=== PATIENT | female | born 1975 | race Hispanic/Latino ===

== ENCOUNTER 2019-04-02 16:25 | Observation (INO) | payer OTHER ==
[~2019-04-02] VITALS: Ht 152.4 cm; Wt 80.5 kg
[2019-04-02 16:55] LABS: BASOPHILS % (AUTO) 0.5 % (0.0-5.0); EOSINOPHILS % (AUTO) 0.9 % (0.0-8.0); HEMATOCRIT 32.2 % (36-48); LYMPHOCYTES % (AUTO) 19.4 % (21.0-51.0); MEAN CORPUSCULAR HEMOGLOBIN 30.8 pg (27.0-33.0); MEAN CORPUSCULAR HGB CONC 34.9 g/dL (32.0-36.0); MEAN CORPUSCULAR VOLUME 88.1 fL (79-99); MONOCYTES % (AUTO) 5.7 % (3.0-13.0); NEUTROPHILS % (AUTO) 73.5 % (40.0-77.0); PLATELET COUNT (AUTO) 194 K/uL (130-400); RED BLOOD CELL COUNT(AUTO) 3.65 MIL/uL (4.00-5.50); RED CELL DISTRIBUTION WIDTH 12.7 % (11.0-15.5)
[2019-04-02 16:57] LABS: APPEARANCE,URINE Clear (CLEAR); BILIRUBIN,URINE Negative (NEGATIVE); COLOR,URINE Yellow (YELLOW); GLUCOSE, URINE (UA) Negative (NEGATIVE); KETONES,URINE Negative (NEGATIVE); LEUKOCYTE ESTERASE ,URINE Negative (NEGATIVE); NITRATE,URINE Negative (NEGATIVE); OCCULT BLOOD,URINE Negative (NEGATIVE); PROTEIN,URINE POS 2+ mg/dL (NEGATIVE); UROBILINOGEN,URINE 0.2 mg/dL (0.2-1.0)
[2019-04-02] MEDS ORDERED: NITROGLYCERIN 0.4 MG SL TAB SL ONE (16:57)
[2019-04-02] MEDS ORDERED: ASPIRIN 325 MG TABLET ONE (16:57)
[2019-04-02 17:04] LABS: BACTERIA,URINE Rare /HPF (None Seen); RBC,URINE 0-1 /HPF (0-1); SQUAMOUS EPITHELIAL CELL,UR Few /HPF (0-2); WBC,URINE 0-1 /HPF (0-1)
[2019-04-02 17:06] LABS: CREATININE 2.3 mg/dL (0.5-1.5); POTASSIUM 3.8 mmol/L (3.5-5.1)
[2019-04-02 17:11] LABS: ALBUMIN 3.3 g/dL (3.5-5.0); BILIRUBIN,TOTAL 0.3 mg/dL (0.2-1.0)
[2019-04-02] MEDS ORDERED: CLONIDINE HCL 0.1 MG TABLET PO PRN (18:30)
[2019-04-02] MEDS ORDERED: HYDROMORPHONE HCL 0.5 MG/0.5 ML ML IVP PRN (18:30)
[2019-04-02 23:23] LABS: CREATINE KINASE, TOTAL 69 U/L (21-232); MYOGLOBIN 83 ng/mL (10-92); TROPONIN I < 0.04 ng/mL (0.00-0.06)
[2019-04-03] MEDS ORDERED: ACETAMINOPHEN 325 MG TAB PO PRN (00:15)
[2019-04-03] MEDS ORDERED: ONDANSETRON HCL 4 MG/2 ML VIAL IVP PRN (00:15)
[2019-04-03 01:10] VITALS: BP 145/81
[2019-04-03 04:00] VITALS: BP 128/75
[2019-04-03 06:11] LABS: MEAN CORPUSCULAR HGB CONC 34.1 g/dL (32.0-36.0); MEAN CORPUSCULAR VOLUME 87.8 fL (79-99); PLATELET COUNT (AUTO) 196 K/uL (130-400); RED BLOOD CELL COUNT(AUTO) 3.42 MIL/uL (4.00-5.50); RED CELL DISTRIBUTION WIDTH 13.2 % (11.0-15.5); WHITE BLOOD COUNT (AUTO) 7.1 K/uL (4.8-10.8)
[2019-04-03 06:40] LABS: ALANINE AMINOTRANSFERASE 17 U/L (12-78); ALBUMIN 2.9 g/dL (3.5-5.0); ASPARTATE AMINOTRANSFERASE 14 U/L (10-37); BILIRUBIN,TOTAL 0.2 mg/dL (0.2-1.0); CARBON DIOXIDE 25 mmol/L (21-32); CHLORIDE 107 mmol/L (101-111); CHOLESTEROL 164 mg/dL (<200); CREATINE KINASE, TOTAL 64 U/L (21-232); CREATININE 2.3 mg/dL (0.5-1.5); GLOMERULAR FILTR. RATE CALC 25 mL/min (>60); GLUCOSE,RANDOM 103 mg/dL (70-105); HDL CHOLESTEROL 46 mg/dL (35-85); LDL DIRECT 93 mg/dL (0-99); MYOGLOBIN 91 ng/mL (10-92); POTASSIUM 3.6 mmol/L (3.5-5.1); SODIUM SERUM 140 mmol/L (136-145); TOTAL PROTEIN, SERUM 6.4 g/dL (6.0-8.3); TRIGLYCERIDES 127 mg/dL (30-200); TROPONIN I < 0.04 ng/mL (0.00-0.06); UREA NITROGEN, BLOOD 20 mg/dL (7-18)
[2019-04-03 06:46] LABS: HEMOGLOBIN A1C 5.4 % (4.0-6.0)
[2019-04-03 07:30] VITALS: BP 166/105
[2019-04-03] MEDS: ASPIRIN 81MG TAB.CHEW PO SCH (10:21)
[2019-04-03] MEDS: PANTOPRAZOLE SODIUM 40 MG TABLET.DR PO SCH (10:21)
[2019-04-03] MEDS: ENOXAPARIN SODIUM 40 MG/0.4 ML SYRINGE SQ SCH (10:22)
[2019-04-03 10:36] LABS: CREATINE KINASE, TOTAL 70 U/L (21-232); MYOGLOBIN 90 ng/mL (10-92); TROPONIN I < 0.04 ng/mL (0.00-0.06)
[2019-04-03 11:00] VITALS: BP 177/108
[2019-04-03] MEDS ORDERED: SODIUM CHLORIDE 0.9% 1000ML 1,000 ML IV SCH (11:15)
[2019-04-03] MEDS ORDERED: DILT240C3 PO (13:25)
[2019-04-03] MEDS ORDERED: LABE300T2 PO (13:25)
[2019-04-03] MEDS ORDERED: HYDR100T27 PO (13:25)
[2019-04-03] MEDS ORDERED: MINO10TA3 PO (13:25)
[2019-04-03] MEDS ORDERED: LINA145C PO (13:25)
[2019-04-03] MEDS ORDERED: IPRATROPIUM/ALBUTEROL SULFATE 3 ML SOLUTION IH PRN (14:30)
[2019-04-03] MEDS: HYDRALAZINE HCL 25 MG TABLET PO SCH ×2 (14:58→21:05)
[2019-04-03 15:30] VITALS: BP 126/70
[2019-04-03] MEDS ORDERED: MINOXIDIL 2.5 MG TAB PO SCH (16:45)
[2019-04-03 19:25] VITALS: BP 152/88
[2019-04-03] MEDS ORDERED: ATORVASTATIN CALCIUM 20 MG TABLET PO SCH (21:00)
[2019-04-03] MEDS ORDERED: LABETALOL HCL 200 MG TABLET PO SCH (21:00)
[2019-04-03] MEDS: LABETALOL HCL 100 MG TABLET PO SCH (21:06)
[2019-04-04 00:20] VITALS: BP 121/77
[2019-04-04 04:30] VITALS: BP 135/86
[2019-04-04] MEDS: FUROSEMIDE 20 MG TABLET PO SCH ×2 (04:39→09:00)
--- NOTE | 2019-04-04 05:10 | NUR ---
PATIENT UPDATE 43 YR OLD FEMALE ADMITTED FOR CHEST PAIN, SERIAL CHEST PAIN PANEL NEGATIVE SINCE DAY 1. NO CHEST PAIN EPISODE FOR MORE THAN 24 HRS NOW. BLOOD PRESSURE ELEVATION NOTED YESTERDAY, HOME MEDS RESTARTED. PENDING A BILATERAL RENAL ARTERY DOPPLER EXAM FOR TODAY. NO COMPLAINTS OF ANY DISCOMFORT OVERNIGHT. RUNNING NORMAL SINUS RHYTHM IN THE 70'S TO 80'S IN THE MANAGER INVENTORY, NO ECTOPIES NOTED.
[2019-04-04 06:34] LABS: BASOPHILS % (AUTO) 0.5 % (0.0-5.0); EOSINOPHILS % (AUTO) 1.5 % (0.0-8.0); HEMATOCRIT 30.8 % (36-48); HEMOGLOBIN A1C 5.3 % (4.0-6.0); MEAN CORPUSCULAR HEMOGLOBIN 30.6 pg (27.0-33.0); MEAN CORPUSCULAR HGB CONC 34.4 g/dL (32.0-36.0); MONOCYTES % (AUTO) 6.7 % (3.0-13.0); NEUTROPHILS % (AUTO) 69.3 % (40.0-77.0); NUCLEATED RED BLOOD CELLS 0.1 % (0.0-0.19); PLATELET COUNT (AUTO) 173 K/uL (130-400); RED BLOOD CELL COUNT(AUTO) 3.46 MIL/uL (4.00-5.50); WHITE BLOOD COUNT (AUTO) 6.4 K/uL (4.8-10.8)
[2019-04-04 06:44] LABS: INR 0.91 (0.85-1.15); PARTIAL THROMBOPLASTIN TIME 26.4 SEC (26.3-35.5); PROTHROMBIN TIME 9.6 SEC (9.6-11.6)
[2019-04-04 06:45] LABS: B-TYPE NATRIURETIC PEPTIDE 155 pg/mL (0-100)
[2019-04-04 06:59] LABS: BILIRUBIN,TOTAL 0.3 mg/dL (0.2-1.0); CREATININE 2.3 mg/dL (0.5-1.5); MAGNESIUM 2.2 mg/dL (1.80-2.40); PHOSPHORUS 3.7 mg/dL (2.5-4.9); POTASSIUM 3.7 mmol/L (3.5-5.1); THYROID STIMULATING HORMONE 3.35 uIU/mL (0.36-3.74); TOTAL PROTEIN, SERUM 6.6 g/dL (6.0-8.3)
[2019-04-04 08:00] VITALS: BP 150/101
[2019-04-04] MEDS ORDERED: FURO20TA6 PO (08:36)
[2019-04-04] MEDS ORDERED: LABE300T2 PO (08:36)
[2019-04-04] MEDS ORDERED: ATOR20TA65 PO (08:36)
[2019-04-04] MEDS ORDERED: MINO2.5 PO (08:36)
[2019-04-04] MEDS ORDERED: ASPI-555 PO (08:36)
[2019-04-04] MEDS ORDERED: LINZESS 145 MCG PO SCH (09:00)
[2019-04-04] MEDS ORDERED: DILTIAZEM HCL 120 MG CAP.SR.24H PO SCH (09:00)
[2019-04-04] MEDS ORDERED: MINOXIDIL 2.5 MG TAB PO SCH ×2 (09:00)
[2019-04-04] MEDS: HYDRALAZINE HCL 25 MG TABLET PO SCH ×2 (09:30→14:00)
[2019-04-04] MEDS: ASPIRIN 81MG TAB.CHEW PO SCH (09:30)
[2019-04-04] MEDS: PANTOPRAZOLE SODIUM 40 MG TABLET.DR PO SCH (09:31)
[2019-04-04] MEDS: LABETALOL HCL 100 MG TABLET PO SCH (09:31)
[2019-04-04] MEDS: ENOXAPARIN SODIUM 40 MG/0.4 ML SYRINGE SQ SCH (09:32)
[2019-04-04 12:00] VITALS: BP 92/52
[2019-04-04 12:40] VITALS: BP 136/84
[2019-04-04 16:00] VITALS: BP 136/77
--- NOTE | 2019-04-04 17:55 | NUR ---
DISCHARGE PATIENT GIVEN DISCHARGE INSTRUCTIONS AND EDUCATION, INCLUDING SIDE EFFECTS ON NEW PRESCRIBED MEDICATIONS AND FOLLOW UP APPOINTMENTS. PATIENT VERBALIZED UNDERSTANDING OF ALL EDUCATION GIVEN VIA TEACH BACK. NO QUESTIONS OR CONCERNS VOICED AT THIS TIME. IV DISCONTINUED, CATHETER INTACT. CARD PUNCHING MACHINE OPERATOR DISCONTINUED, MONITOR AWARE. NO SIGNS OF DISTRESS NOTED UPON DISCHARGE. PATIENT LEFT VIA WHEELCHAIR TO PRIVATE CAR WITH DAUGHTER AT SIDE. ALL BELONGINGS TAKEN WITH. Addendum: 04/04/19 at 1800 by ONUR HOLDEN RN RN Amended: Links added.
== END 2019-04-04 17:45 | disposition home or self-care (01) ==
LOC: EDH 16:25 → EDHIP 18:09 → 3DH 04-03 01:10
PROVIDERS: ADMIT Internal Medicine; ATTEND Internal Medicine
DX: R07.89 Other chest pain (principal); E78.5 Hyperlipidemia, unspecified; E87.0 Hyperosmolality and hypernatremia; I12.9 Hypertensive chronic kidney disease with stage 1 through stage 4 chronic kidney disease, or unspecified chronic kidney disease; N18.4 Chronic kidney disease, stage 4 (severe); N17.9 Acute kidney failure, unspecified; I16.0 Hypertensive urgency; I25.10 Atherosclerotic heart disease of native coronary artery without angina pectoris; J45.901 Unspecified asthma with (acute) exacerbation; Z85.528 Personal history of other malignant neoplasm of kidney; Z16.24 Resistance to multiple antibiotics; Z79.899 Other long term (current) drug therapy; Z90.5 Acquired absence of kidney; Z82.49 Family history of ischemic heart disease and other diseases of the circulatory system
CPT/HCPCS: 36415 ×3; 71045; 76770 ×2; 80053 ×3; 80061 ×2; 81001; 82550 ×4; 83036 ×2; 83735; 83874 ×3; 83880 ×2; 84100; 84443; 84484 ×4; 85025 ×2; 85027; 85610; 85730; 93005 ×5; 93975; 94664; 96372 ×2; 99284; G0378 ×48; J1650 ×2

== ENCOUNTER → 2019-04-02 | Outpatient (CLI) | payer OTHER ==
[~2019-04-02] MED LIST: ASPI-555 PO; ATOR20TA65 PO; DILT240C3 PO; FURO20TA6 PO; HYDR100T27 PO; LABE300T2 PO; LINA145C PO; MINO10TA3 PO; MINO2.5 PO
== END | disposition home or self-care (01) ==
LOC: SHCH 10:01
PROVIDERS: ATTEND Internal Medicine Cardiovascular Disease
DX: I08.3 Combined rheumatic disorders of mitral, aortic and tricuspid valves (principal); I11.9 Hypertensive heart disease without heart failure
CPT/HCPCS: 93306

== ENCOUNTER → 2019-05-19 | Outpatient (CLI) | payer OTHER ==
[~2019-05-19] VITALS: Ht 152.4 cm; Wt 76.3 kg
[~2019-05-19] MED LIST changes: +CEFAZOLIN SODIUM 1 GM VIAL IVP SCH; +FURO20TA4 PO; +KBU PO; -MINO10TA3 PO
[2019-05-19 10:05] VITALS: BP 140/94
[2019-05-19 10:14] LABS: APPEARANCE,URINE Clear (CLEAR); BASOPHILS % (AUTO) 0.8 % (0.0-5.0); BILIRUBIN,URINE Negative (NEGATIVE); COLOR,URINE Yellow (YELLOW); EOSINOPHILS % (AUTO) 0.9 % (0.0-8.0); GLUCOSE, URINE (UA) Negative (NEGATIVE); HEMATOCRIT 40.1 % (36-48); KETONES,URINE Negative (NEGATIVE); LEUKOCYTE ESTERASE ,URINE Negative (NEGATIVE); LYMPHOCYTES % (AUTO) 21.8 % (21.0-51.0); MEAN CORPUSCULAR HEMOGLOBIN 28.6 pg (27.0-33.0); MEAN CORPUSCULAR HGB CONC 32.8 g/dL (32.0-36.0); MEAN CORPUSCULAR VOLUME 87.1 fL (79-99); NEUTROPHILS % (AUTO) 71.5 % (40.0-77.0); NITRATE,URINE Negative (NEGATIVE); NUCLEATED RED BLOOD CELLS 0.1 % (0.0-0.19); OCCULT BLOOD,URINE Negative (NEGATIVE); PH,URINE 5.5 (5.0-8.0); PLATELET COUNT (AUTO) 222 K/uL (130-400); PROTEIN,URINE 300 mg/dL (NEGATIVE); RED CELL DISTRIBUTION WIDTH 13.9 % (11.0-15.5); WHITE BLOOD COUNT (AUTO) 7.3 K/uL (4.8-10.8)
[2019-05-19 10:26] LABS: ALBUMIN 3.8 g/dL (3.5-5.0); BILIRUBIN,TOTAL 0.3 mg/dL (0.2-1.0); CREATININE 2.5 mg/dL (0.5-1.5); POTASSIUM 4.9 mmol/L (3.5-5.1); TOTAL PROTEIN, SERUM 8.1 g/dL (6.0-8.3)
--- NOTE | 2019-05-19 10:30 | NUR ---
RE: ASPIRIN CALLED DR BURTON'S OFFICE AND SPOKE WITH NURSE. INFORMED HER THAT PT IS CURRENTLY TAKING ASPIRIN 81MG DAILY AND LAST DOSE WAS TODAY AT 0800. NURSE WILL INFORM DR BURTON AND CALL BACK WITH FURTHER ORDERS. Addendum: 05/19/19 at 1231 by KORY SINGLETARY RN RN NURSE
[2019-05-19 10:42] LABS: BACTERIA,URINE Rare /HPF (None Seen); MUCUS,URINE Rare LPF (None Seen); RBC,URINE None Seen /HPF (0-1); WBC,URINE None Seen /HPF (0-1)
--- NOTE | 2019-05-19 12:44 | NUR ---
PROCEDURE RESCHEDULED PER DR BURTON'S NURSE, FAINA. PATIENT'S PROCEDURE WILL BE RESCHEDULED BECAUSE DR BURTON WANTS PATIENT TO BE OFF THE ASPIRIN FOR AT LEAST 4 DAYS.
== END | disposition home or self-care (01) ==
LOC: EDSTATUS 09:00 → DAH 10:00
PROVIDERS: ATTEND Student in an Organized Health Care Education/Training Program
DX: Z01.818 Encounter for other preprocedural examination (principal); K64.4 Residual hemorrhoidal skin tags; Z79.82 Long term (current) use of aspirin; Z79.899 Other long term (current) drug therapy; Z82.49 Family history of ischemic heart disease and other diseases of the circulatory system; Z83.3 Family history of diabetes mellitus
CPT/HCPCS: 36415; 80053; 81001; 84703; 85025

== ENCOUNTER → 2019-05-20 | Outpatient (CLI) | payer OTHER ==
[~2019-05-20] VITALS: Ht 152.4 cm; Wt 76.7 kg
[~2019-05-20] MED LIST changes: -CEFAZOLIN SODIUM 1 GM VIAL IVP SCH; -FURO20TA6 PO; +REGADENOSON 0.4 MG/5 ML PF SYG IVP SCH
== END | disposition home or self-care (01) ==
LOC: SHCH 08:44
PROVIDERS: ATTEND Internal Medicine Cardiovascular Disease
DX: I25.10 Atherosclerotic heart disease of native coronary artery without angina pectoris (principal)
CPT/HCPCS: 78452; 93017; 96374; A9500 ×2; J2785

== ENCOUNTER 2020-08-11 06:15 | Observation (INO) | payer OTHER ==
[2020-08-05 15:13] LABS: BASOPHILS % (AUTO) 0.5 % (0.0-5.0); HEMATOCRIT 35.4 % (36-48); LYMPHOCYTES % (AUTO) 19.2 % (21.0-51.0); MEAN CORPUSCULAR HEMOGLOBIN 29.6 pg (27.0-33.0); MEAN CORPUSCULAR HGB CONC 32.8 g/dL (32.0-36.0); MEAN CORPUSCULAR VOLUME 90.3 fL (79-99); MONOCYTES % (AUTO) 4.7 % (3.0-13.0); NEUTROPHILS % (AUTO) 74.2 % (40.0-77.0); PLATELET COUNT (AUTO) 220 K/uL (130-400); RED BLOOD CELL COUNT(AUTO) 3.92 MIL/uL (4.00-5.50); RED CELL DISTRIBUTION WIDTH 13.7 % (11.0-15.5); WHITE BLOOD COUNT (AUTO) 8.4 K/uL (4.8-10.8)
[2020-08-05 15:27] LABS: INR 0.9 (0.85-1.15); PARTIAL THROMBOPLASTIN TIME 24.5 SEC (26.3-35.5); PROTHROMBIN TIME 9.8 SEC (9.6-11.6)
[2020-08-05 15:31] LABS: ALBUMIN 3.6 g/dL (3.5-5.0); BILIRUBIN,TOTAL 0.4 mg/dL (0.2-1.0); CREATININE 3.5 mg/dL (0.5-1.5); POTASSIUM 3.9 mmol/L (3.5-5.1); TOTAL PROTEIN, SERUM 7.1 g/dL (6.0-8.3)
--- NOTE | 2020-08-10 12:13 | NUR ---
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
[2020-08-11] VITALS (27 sets, daily range): BP systolic 101–140; BP diastolic 51–84
[~2020-08-11] VITALS: Ht 156.2 cm; Wt 76.7 kg
[~2020-08-11 06:15] MED LIST changes: -ASPI-555 PO; +ASPI-556 PO; -ATOR20TA65 PO; +ATOR40TA71 PO; -DILT240C3 PO; +DILT240C97 PO; -FURO20TA4 PO; -KBU PO; -LINA145C PO; -REGADENOSON 0.4 MG/5 ML PF SYG IVP SCH; +SODIUM CHLORIDE 0.9% 500ML 500 ML IV SCH
[2020-08-11] MEDS: CEFAZOLIN SODIUM 1 GM VIAL IVP SCH ×2 (08:00→11:03)
[2020-08-11] MEDS ORDERED: SODIUM CHLORIDE 0.9% 1000ML 1,000 ML IV ONE (08:23)
[2020-08-11] MEDS ORDERED: LIDOCAINE PF 2% 5ML ABBOJECT ONE (10:51)
[2020-08-11] MEDS ORDERED: ONDANSETRON HCL 4 MG/2 ML VIAL ONE (10:51)
[2020-08-11] MEDS ORDERED: PROPOFOL 10 MG/ML 20ML VIAL IV ONE (10:51)
[2020-08-11] MEDS ORDERED: SUCCINYLCHOLINE CHLORIDE 20 MG/ML 10 ML VIAL ONE (10:51)
[2020-08-11] MEDS ORDERED: MIDAZOLAM HCL 1 MG/ML 2ML VIAL ONE (10:52)
[2020-08-11] MEDS ORDERED: FENTANYL CITRATE PF 50 MCG/1 ML 2ML VIAL ONE (10:54)
[2020-08-11] MEDS ORDERED: ROCURONIUM 10MG/1ML SYR 10 MG/ML ML ONE (10:59)
[2020-08-11] MEDS ORDERED: CISATRACURIUM BESYLATE 2 MG/ML 10ML VIAL IVP SCH (11:00)
[2020-08-11] MEDS ORDERED: EPHEDRINE SULFATE 50 MG/ML AMPULE ONE (11:17)
[2020-08-11] MEDS ORDERED: DEXAMETHASONE SOD PHOSPHATE 10MG/ML 1ML VIAL ONE (11:49)
[2020-08-11] MEDS ORDERED: ALBUMIN (HUMAN) 5% 250 ML IV ONE (12:08)
[2020-08-11] MEDS ORDERED: SODIUM BICARB 8.4% 50ML SYRINGE ONE (12:55)
[2020-08-11] MEDS ORDERED: GLYCOPYRROLATE 1 MG/5 ML SYRINGE ONE (13:42)
[2020-08-11] MEDS ORDERED: NEOSTIGMINE 5MG/5ML SYR IV ONE (13:42)
[2020-08-11] MEDS ORDERED: MEPERIDINE-PF 25 MG/ML SYG ONE ×2 (14:20→14:29)
--- NOTE | 2020-08-11 19:10 | NUR ---
ADMISSION RECEIVED PATIENT FROM DAY SURGERY S/P OPEN VENTRAL HERNIA REPAIR WITH PANNICULECTOMY AND RIGHT INGUINAL HERNIA REPAIR. PATIENT ALERT AND ORIENTED X 3 WITH NO SIGNS OF DISTRESS. ABDOMINAL BINDER IN PLACE WITH BILATERAL DRESSINGS NOTED. DRESSING TO LEFT JENNIFER SITE NOTED TO BE STAINED WITH BLOOD, NO ACTIVE BLEEDING AT THIS TIME. LEFT JENNIFER NOTED WITH MODERATE AMOUNT OF SANGUINEOUS DRAINAGE. RIGHT JENNIFER NOTED TO HAVE SMALL AMOUNT OF DRAINAGE. TRANSVERSE ABDOMINAL INCISION INTACT WITH DERMABOND, NO DRAINAGE OR REDNESS NOTED TO THE SITE. PATIENT ASSISTED TO BED AND MADE COMFORTABLE.
[2020-08-11] MEDS: HYDRALAZINE HCL 25 MG TABLET PO SCH (20:20)
[2020-08-11] MEDS: ATORVASTATIN CALCIUM 40 MG TABLET PO SCH (20:21)
[2020-08-11] MEDS: LABETALOL HCL 200 MG TABLET PO SCH (20:22)
[2020-08-11] MEDS: ACETAMINOPHEN-CODEINE 300/30MG TAB PO PRN (20:23)
--- NOTE | 2020-08-11 23:30 | NUR ---
ISOLATION STATUS REPORT FROM OFF GOING RN ON DAY SHIFT WAS THAT PATIENT HAD A HISTORY OF MDRO THAT REQUIRES ISOLATION. AN EVALUATION OF THE MEDICAL RECORDS DID NOT REVEAL THAT INFORMATION. PATIENT DENIES HAVING AN HISTORY OF MULTIPLE DRUG RESISTANT ORGANISM. PATIENT REMAINS OFF ISOLATION, WILL MAINTAIN UNIVERSAL PRECAUTIONS THIS TIME.
[2020-08-12] MEDS: MORPHINE SULFATE 20MG/ML ORAL 0.25 ML PO PRN ×2 (00:20→19:23)
[2020-08-12] MEDS ORDERED: FLU VACC QS2020-21(6MOS UP)/PF 60 MCG/0.5 ML ML IM ONE (01:00)
[2020-08-12 03:12] VITALS: BP 118/59
[2020-08-12] MEDS: ACETAMINOPHEN-CODEINE 300/30MG TAB PO PRN ×3 (03:42→22:46)
[2020-08-12 05:38] LABS: HEMATOCRIT 28.4 % (36-48); MEAN CORPUSCULAR HEMOGLOBIN 29.4 pg (27.0-33.0); MEAN CORPUSCULAR VOLUME 91.6 fL (79-99); RED BLOOD CELL COUNT(AUTO) 3.1 MIL/uL (4.00-5.50); RED CELL DISTRIBUTION WIDTH 13.2 % (11.0-15.5); WHITE BLOOD COUNT (AUTO) 11.3 K/uL (4.8-10.8)
[2020-08-12 06:04] LABS: CREATININE 3.3 mg/dL (0.5-1.5); POTASSIUM 4.8 mmol/L (3.5-5.1)
[2020-08-12 07:00] VITALS: BP 129/74
--- NOTE | 2020-08-12 08:30 | NUR ---
AM ASSESSMENT PT LAYING IN BED, WATCHING TV. RESTING. A/O X 3. NO SOB. NO DISTRESS NOTED. DENIES CHEST PAIN OR DISCOMFORT. C/O INCISIONAL PAIN @ THIS TIME. PO PAIN MEDICATION TO BE GIVEN. DENIES N/V AND/OR DIARRHEA. ABDOMINAL INCISION WELL APPROX, NO DRAINAGE NOTED. JENNIFER DRAIN X 2, PATENT & DRAINING. UP AD JO. INSTRUCTED TO CALL FOR ASSISTANCE. CALL AMELIE W/IN REACH.
[2020-08-12] MEDS: HYDRALAZINE HCL 25 MG TABLET PO SCH ×3 (08:34→20:23)
[2020-08-12] MEDS: MINOXIDIL 2.5 MG TAB PO SCH (08:35)
[2020-08-12] MEDS: ASPIRIN 81MG TAB.CHEW PO SCH (08:35)
[2020-08-12] MEDS: LABETALOL HCL 200 MG TABLET PO SCH ×2 (08:35→21:22)
[2020-08-12] MEDS: DILTIAZEM HCL 120 MG CAP.SR.24H PO SCH (08:36)
[2020-08-12 11:00] VITALS: BP 118/59
--- NOTE | 2020-08-12 11:50 | NUR ---
DSG CHANGE PT S/P SHOWER. DSG TO BILATERAL JENNIFER DRAIN PUNCTURE SITES CHANGED @ THIS TIME. PUNCTURE SITES INTACT, SUTURE IN PLACE. GAUZE & TAPE APPLIED TO BOTH SITES. PT TOLERATED WELL.
[2020-08-12 15:00] VITALS: BP 97/50
--- NOTE | 2020-08-12 15:35 | NUR ---
PRIMITIVO NOTE/IA UNABLE TO MEET WITH PATIENT IN ROOM, NEXT OF KIN CALLED, YASSINE YAZ. PER DAUGHTER, PATIENT LIVES WITH FAMILY, INDEPENDENT WITH ADLS, NO USE OF PROVIDERS OR HOME HEALTH, NO DME IN USE AND FEELS SAFE FOR PATIENT TO RETURN HOME ONCE DISCHARGED. Addendum: 08/12/20 at 1536 by JANA HOLDEN RN CM Amended: Links added.
[2020-08-12 19:12] VITALS: BP 115/65
[2020-08-12] MEDS: ATORVASTATIN CALCIUM 40 MG TABLET PO SCH (20:22)
[2020-08-12 23:27] VITALS: BP 110/69
[2020-08-13 03:22] VITALS: BP 116/70
[2020-08-13] MEDS: ACETAMINOPHEN-CODEINE 300/30MG TAB PO PRN (05:09)
[2020-08-13 07:00] VITALS: BP 125/81
[2020-08-13] MEDS: HYDRALAZINE HCL 25 MG TABLET PO SCH (08:13)
[2020-08-13] MEDS: DILTIAZEM HCL 120 MG CAP.SR.24H PO SCH (08:19)
[2020-08-13] MEDS: ASPIRIN 81MG TAB.CHEW PO SCH (08:20)
[2020-08-13] MEDS: MINOXIDIL 2.5 MG TAB PO SCH (08:21)
[2020-08-13] MEDS: LABETALOL HCL 200 MG TABLET PO SCH (08:21)
[2020-08-13] MEDS ORDERED: LACTULOSE 20 GM/30 ML UDCUP ONE (09:34)
[2020-08-13 11:00] VITALS: BP 108/63
[2020-08-13 15:51] VITALS: BP 109/67
== END 2020-08-13 18:40 | disposition home or self-care (01) ==
LOC: DAH 06:15 → DAHIP 06:16 → EDSTATUS 09:20 → 4CH 19:23
PROVIDERS: ADMIT Student in an Organized Health Care Education/Training Program; ATTEND Student in an Organized Health Care Education/Training Program
DX: K40.90 Unilateral inguinal hernia, without obstruction or gangrene, not specified as recurrent (principal); Z20.828 Contact with and (suspected) exposure to other viral communicable diseases; K43.9 Ventral hernia without obstruction or gangrene; E65 Localized adiposity
CPT/HCPCS: 15830; 36415 ×2; 49505; 49560; 49568; 80048; 80053; 84703; 85025; 85027; 85610; 85730; A4215; A4221; A4222; A4223; A4452; A4600; A4649 ×3; A4663; A6260; C1781; G0168 ×2; G0378 ×19; J0330; J0690 ×2; J1100; J2001; J2175 ×2; J2250; J2405; J2704; J2710; J3010; J3490 ×4; J7030 ×2; J7040; P9045; Q2035; U0003